=== PATIENT | male | born 1985 | race Caucasian/White ===

== ENCOUNTER 2025-10-07 08:58 | Emergency (ER) | payer OTHER ==
[2025-10-07] MEDS ORDERED: Dexamethasone 10 MG/ML VIAL ONE (09:24)
[2025-10-07] MEDS ORDERED: Ibuprofen 800 MG TAB ONE (09:24)
[2025-10-07 09:59] LABS: #Basophils 0.1 thou/uL (0.0-0.2); #Eosinophils 0.2 thou/uL (0.0-0.7); #Lymphocytes 1.0 thou/uL (1.20-3.40); #Monocytes 0.6 thou/uL (0.11-0.59); #Neutrophils 5.3 thou/uL (1.40-6.50); %Basophils 1.5 % (0.0-1.0); %Eosinophils 2.9 % (0.0-10.0); %Lymphocytes 14.0 % (21.0-51.0); %Monocytes 7.9 % (0.0-10.0); %Neutrophils 73.7 % (42.0-75.0); Hematocrit 42.9 % (42.0-52.0); Hemoglobin 14.1 g/dL (14.0-18.0); Mean Corpuscular Hemoglobin 30.4 pg (27.0-31.0); Mean Corpuscular Volume 92.5 fl (78.0-98.0); Platelet Count 180 10x3/uL (130-400); Red Blood Cell (RBC) Count 4.64 mill/uL (4.70-6.10); White Blood Cell (WBC) Count 7.1 10x3/uL (4.8-10.8)
[2025-10-07 10:08] LABS: ALT (SGPT) 19 U/L (Less than 45); AST (SGOT) 17 U/L (11-34); Albumin 4.4 g/dL (3.1-4.5); Alkaline Phosphatase 60 U/L (40-110); Anion Gap 16 mmol/L (10-20); BUN (Urea Nitrogen) 18 mg/dL (8.9-20.6); Bilirubin, Total 0.6 mg/dL (0.3-1.2); Calc. Creatinine Clearance 0 mL/min (70-130); Calcium 9.1 mg/dL (7.8-10.44); Carbon Dioxide 24 mmol/L (22-29); Chloride 102 mmol/L (98-107); Globulin 2.9 g/dL (2.4-3.5); Glucose 340 mg/dL (70-105); Potassium 4.1 mmol/L (3.5-5.1); Sodium 138 mmol/L (136-145)
[2025-10-07 10:11] LABS: Troponin I 0.030 ng/mL (< 0.028)
[2025-10-07] MEDS ORDERED: Aspirin Chewable 81 MG TAB ONE (11:38)
[2025-10-07 12:26] LABS: Troponin I 0.011 ng/mL (< 0.028)
== END 2025-10-07 14:55 | disposition short-term general hospital (02) ==
LOC: MADERS 08:58
DX: R07.89 Other chest pain (principal); R05.9 Cough, unspecified; E11.9 Type 2 diabetes mellitus without complications; I10 Essential (primary) hypertension; E78.5 Hyperlipidemia, unspecified; F17.210 Nicotine dependence, cigarettes, uncomplicated; Z79.4 Long term (current) use of insulin; Z79.84 Long term (current) use of oral hypoglycemic drugs; Z79.899 Other long term (current) drug therapy
CPT/HCPCS: 36415; 71046; 80053; 83880; 84484; 85025; 87428; 93005; J1100; J7030